=== PATIENT | male | born 1970 | race Caucasian/White ===

== ENCOUNTER 2019-09-29 02:58 | Emergency (ER) | payer MEDICARE, MEDICAID ==
[~2019-09-29] VITALS: Ht 182.9 cm; Wt 109.6 kg
--- NOTE | 2019-09-29 03:22 | ED Neurological Problem ---
General Stated Complaint: WEAKNESS Source: patient, EMS History of Present Illness Date Seen by Provider: Sep 29, 2019 Time Seen by Provider: 02:58 Initial Comments 49 -year-old male presenting with left-sided weakness. He states that around 7 PM he started feeling like his left side was going to sleep. Then he woke up around 2 AM and had tried to get up to go the bathroom. He had to crawl to the bathroom because when he had to stand up he couldn't because his left side was so weak. He denies having headache or any change in his vision. He denies any fever or chills. He has no cough or shortness of breath. He is a diabetic and a smoker. Allergies and Home Medications Allergies Coded Allergies: No Known Drug Allergies (Unverified , 09/29/19) Patient Home Medication List Home Medication List Reviewed: Yes Review of Systems Review of Systems Constitutional: No chills, No fever Eyes: No Symptoms Reported Ears, Nose, Mouth, Throat: no symptoms reported Respiratory: no symptoms reported Cardiovascular: no symptoms reported Gastrointestinal: no symptoms reported Genitourinary: no symptoms reported Musculoskeletal: muscle weakness (left sided) Skin: no symptoms reported Psychiatric/Neurological: Denies Headache; Weakness (on left side) Endocrine: No Symptoms Reported Hematologic/Lymphatic: No Symptoms Reported Past Qsokklv-Bancis-Oyyvxz Hx Past Med/Social Hx: Reviewed Nursing Past Med/Soc Hx Patient Social History Recent Foreign Travel: No Contact w/Someone Who Travel: No Past Medical History Respiratory: No Cardiac: Yes High Cholesterol, Hypertension Neurological: No Genitourinary: No Gastrointestinal: Yes Gastroesophageal Reflux Musculoskeletal: No Diabetes, Non-Insulin dep HEENT: No Cancer: No Psychosocial: No Integumentary: No Physical Exam Vital Signs Vital Signs - First Documented 09/29/19 03:21 Temp 36.9 Pulse 97 Resp 18 B/P (MAP) 152/82 (105) Pulse Ox 95 O2 Delivery Room Air Capillary Refill : Height, Weight, BMI Height: '" Weight: lbs. oz. kg; BMI Method: General Appearance: WD/WN, no apparent distress HEENT: PERRL/EOMI, pharynx normal Neck: non-tender, full range of motion, supple, normal inspection; No carotid bruit Respiratory: chest non-tender, lungs clear, normal breath sounds, no respiratory distress, no accessory muscle use Cardiovascular: normal peripheral pulses, regular rate, rhythm, no murmur Gastrointestinal: normal bowel sounds, non tender, soft, no pulsatile mass Extremities: normal range of motion, non-tender, normal capillary refill Neurologic/Psychiatric: alert, normal mood/affect; No oriented x 3 (not oriented to time); facial droop (left side) Crainal Nerves: PERRL, abnormal speech (slurred speech), facial droop Motor/Sensory: no sensory deficit, weak motor strength LUE Skin: normal color, warm/dry Stroke Onset of Symptoms Date of Onset of Symptoms: Sep 28, 2019 Time of Symptom Onset: 19:00 Onset of Symptoms: Yes NIH Stroke Scale Assessment Select: Initial Level of Consciousness: 0=Alert (0), Level of Consciousness- Questions: 1=Answers one question (1), LOC Commands: 0=Performs both tasks (0), Gaze: Normal (0), Visual Boss: 0=No visual loss (0), Facial Movement (Facial Paresis): 2=Partial paralysis (2), Motor Function-Arms Right: 0=No drift (0), Motor Function-Arms Left: 1=Drift (1), Motor Function-Legs Right: 0=No drift (0), Motor Function-Legs Left: 0=No drift (0), Limb Ataxia: 0=Absent (0), Sensory: 0=Normal:no loss (0), Best Language: 0=No aphasia (0), Dysarthria: 1=Mild to moderate loss (1), Extinction & Inattention: 0=No abnormality (0), Total: 5 Stroke Thrombolytic Exclusion Age 18 or Over: Yes Progress/Results/Core Measures Results/Orders Lab Results Laboratory Tests Test 09/29/19 03:40 09/29/19 03:44 Range/Units White Blood Count 8.1 4.3-11.0 10^3/uL Red Blood Count 5.57 4.35-5.85 10^6/uL Hemoglobin 17.0 13.3-17.7 G/DL Hematocrit 49 40-54 % Mean Corpuscular Volume 88 80-99 FL Mean Corpuscular Hemoglobin 31 25-34 PG Mean Corpuscular Hemoglobin Concent 35 32-36 G/DL Red Cell Distribution Width 12.9 10.0-14.5 % Platelet Count 248 130-400 10^3/uL Mean Platelet Volume 8.5 7.4-10.4 FL Neutrophils (%) (Auto) 59 42-75 % Lymphocytes (%) (Auto) 32 12-44 % Monocytes (%) (Auto) 8 0-12 % Eosinophils (%) (Auto) 1 0-10 % Basophils (%) (Auto) 1 0-10 % Neutrophils # (Auto) 4.7 1.8-7.8 X 10^3 Lymphocytes # (Auto) 2.6 1.0-4.0 X 10^3 Monocytes # (Auto) 0.7 0.0-1.0 X 10^3 Eosinophils # (Auto) 0.1 0.0-0.3 10^3/uL Basophils # (Auto) 0.0 0.0-0.1 10^3/uL Prothrombin Time 13.0 12.2-14.7 SEC INR Comment 1.0 0.8-1.4 Activated Partial Thromboplast Time 25 24-35 SEC Sodium Level 137 135-145 MMOL/L Potassium Level 3.6 3.6-5.0 MMOL/L Chloride Level 98 98-107 MMOL/L Carbon Dioxide Level 23 21-32 MMOL/L Anion Gap 16 H 5-14 MMOL/L Blood Urea Nitrogen 7 7-18 MG/DL Creatinine 0.62 0.60-1.30 MG/DL Estimat Glomerular Filtration Rate > 60 BUN/Creatinine Ratio 11 Glucose Level 325 H 70-105 MG/DL Calcium Level 9.4 8.5-10.1 MG/DL Corrected Calcium 9.2 8.5-10.1 MG/DL Total Bilirubin 0.5 0.1-1.0 MG/DL Aspartate Amino Transf (AST/SGOT) 15 5-34 U/L Alanine Aminotransferase (ALT/SGPT) 22 0-55 U/L Alkaline Phosphatase 86 40-136 U/L Troponin I < 0.30 <0.30 NG/ML Total Protein 7.4 6.4-8.2 GM/DL Albumin 4.2 3.2-4.5 GM/DL Serum Alcohol < 10 <10 MG/DL Glucometer 297 H 70-110 MG/DL My Orders Orders - PETRA GALVAN MD Cbc With Automated Diff (09/29/19 03:13) Protime With Inr (09/29/19 03:13) Partial Thromboplastin Time (09/29/19 03:13) Comprehensive Metabolic Panel (09/29/19 03:13) Troponin I Fs (09/29/19 03:13) Ua Culture If Indicated (09/29/19 03:13) Chest 1 View Ap/Pa Only (09/29/19 03:13) Ekg Tracing (09/29/19 03:13) Nothing By Mouth (09/29/19 Breakfast) Accucheck Stat ONCE (09/29/19 03:13) Ed Iv/Invasive Line Start (09/29/19 03:13) Vital Signs Stroke Patient Q15M (09/29/19 03:13) Ct Head Wo-R/O Stroke (09/29/19 03:13) O2 (09/29/19 03:13) Monitor-Rhythm Ecg Trace Only (09/29/19 03:13) Dysphagia Screening Tool (09/29/19 03:13) Alcohol (09/29/19 03:13) Drug Screen Stat (Urine) (09/29/19 03:13) Vital Signs/I&O 09/29/19 03:21 Temp 36.9 Pulse 97 Resp 18 B/P (MAP) 152/82 (105) Pulse Ox 95 O2 Delivery Room Air Progress Progress Note #1: Progress Note check labs and ECG as well as CT head to evaluate from a stroke stand point. He has a NIHSS level of 5. He woke up with the symptoms being worse and he had onset of abnormal symptoms around 1900 Progress Note #2: Time: 03:55 Progress Note CXR does not show any acute process on my review of the 1 view chest film. His CBC is stable without acute findings. His coags are normal as well. Chemistry is pending as well as the CT of his head. Progress Note #3: Time: 04:11 Progress Note Updated the patient and his daughter that he has had a stroke but the CT scan does not show any bleeding. Recommend transfer to a larger hospital that would be a stroke center in [place] or [place] where Neurology and IR could work with him. Pt requests [facility]. Updated his sister over the cell phone as well. Progress Note #4: Time: 04:14 Progress Note Page placed through transfer line ADRIEN Garcia, at [facility]. She will page Dr. Castaneda with the hospitalist service and call me back. Progress Note #5: Time: 04:[address] Castaneda called back and reviewed the case and test results with her. She accepted the patient for transfer. Initial ECG Impression Date: Sep 29, 2019 Initial ECG Impression Time: 03:03 Initial ECG Rate: 93 Initial ECG Rhythm: Normal Sinus Initial ECG Comparisson: No Previous ECG Available Comment Normal sinus rhythm with a heart rate of 93 bpm. TN interval of 153 ms. QT interval 362 ms QTc interval [address] elevation. No prior tracing immediately available for comparison. Diagnostic Imaging Diagonstic Imaging: CT Plain Films/CT/US/NM/MRI: head Comments No acute findings. Read by Dr. Ibrahima Lucas MD at 0342 AM and faxed at 0400 AM Diagonstic Imaging: Xray Plain Films/CT/US/NM/MRI: chest Comments On my review of his 1 view chest x-ray has no acute process. There is no effusion or definite infiltrate. He has no cardiomegaly or pneumothorax. There is no prior imaging for comparison Departure Impression Primary Impression: Acute ischemic stroke Additional Impressions: Acute left-sided weakness Weakness on left side of face Disposition: 02 XFER SHT-TRM HOSP Condition: Stable Transfer Transfer Reason: Exceeds level of care (Needs Neurology and acute stroke care) Time Spoke to Accepting Phy: 04:24 Transfer Progress Notes D/w Dr. Castaneda, Hospitalist, at [facility] and she accepted pt for transfer Transfer Facility: [facility] Method of Transfer: EMS Departure-Patient Inst. Referrals: NO,LOCAL PHYSICIAN (PCP/Family) Primary Care Physician PETAR GALVAN MD Sep 29, 2019 03:22
[2019-09-29] MEDS ORDERED: OMEP40CA27 (03:47)
[2019-09-29] MEDS ORDERED: ATOR20TA66 (03:47)
[2019-09-29] MEDS ORDERED: METF-399 (03:47)
[2019-09-29] MEDS ORDERED: LISI-556 (03:47)
[2019-09-29 03:52] LABS: HEMATOCRIT 49 % (40-54); MEAN CORPUSCULAR VOLUME 88 FL (80-99); WHITE BLOOD COUNT 8.1 10^3/uL (4.3-11.0)
[2019-09-29 03:53] LABS: BASOPHILS % (AUTO) 1 % (0-10); EOSINOPHILS # (AUTO) 0.1 10^3/uL (0.0-0.3); EOSINOPHILS % (AUTO) 1 % (0-10); LYMPHOCYTES # (AUTO) 2.6 X 10^3 (1.0-4.0); LYMPHOCYTES % (AUTO) 32 % (12-44); MEAN CORPUSCULAR HEMOGLOBIN 31 PG (25-34); MEAN CORPUSCULAR HGB CONC 35 G/DL (32-36); MEAN PLATELET VOLUME 8.5 FL (7.4-10.4); MONOCYTES # (AUTO) 0.7 X 10^3 (0.0-1.0); MONOCYTES % (AUTO) 8 % (0-12); NEUTROPHILS # (AUTO) 4.7 X 10^3 (1.8-7.8); NEUTROPHILS % (AUTO) 59 % (42-75); PLATELET COUNT 248 10^3/uL (130-400); RED CELL DISTRIBUTION WIDTH 12.9 % (10.0-14.5)
[2019-09-29 04:20] LABS: POTASSIUM 3.6 MMOL/L (3.6-5.0); SODIUM 137 MMOL/L (135-145)
[2019-09-29 04:21] LABS: ALANINE AMINOTRANSFERASE 22 U/L (0-55); ALKALINE PHOSPHATASE 86 U/L (40-136); BILIRUBIN,TOTAL 0.5 MG/DL (0.1-1.0); BUN/CREATININE RATIO 11; CALCIUM 9.4 MG/DL (8.5-10.1); CARBON DIOXIDE 23 MMOL/L (21-32); CHLORIDE 98 MMOL/L (98-107); CREATININE SERUM 0.62 MG/DL (0.60-1.30); GFR ESTIMATED > 60; GLUCOSE 325 MG/DL (70-105); TOTAL PROTEIN 7.4 GM/DL (6.4-8.2)
[2019-09-29 04:22] LABS: ALBUMIN 4.2 GM/DL (3.2-4.5)
--- NOTE | 2019-09-29 04:55 | NUR ---
ems here for transport.
[2019-09-29 05:01] VITALS: BP 122/82
--- NOTE | 2019-09-29 06:11 | Diagnostic Imaging Report ---
PROCEDURE: CT head wo r/o stroke. TECHNIQUE: Multiple contiguous axial images were obtained through the brain without the use of intravenous contrast. Auto Exposure Controls were utilized during the CT exam to meet ALARA standards for radiation dose reduction. INDICATION: Stroke. COMPARISON: None. FINDINGS: No intracranial hemorrhage, mass effect, hydrocephalus or extra-axial fluid collections. No CT evidence for territorial infarction. Osseous structures are intact. The visualized paranasal sinuses and mastoids are clear. IMPRESSION: No acute intracranial CT findings. Dictated by: Dictated on workstation # [id number]
--- NOTE | 2019-09-29 06:55 | Diagnostic Imaging Report ---
EXAM: CHEST 1 VIEW AP/PA ONLY INDICATION: Cough. COMPARISON: None. FINDINGS: Normal heart size and pulmonary vascularity. No dense consolidation, pleural effusion or pneumothorax. No acute osseous findings. IMPRESSION: No acute cardiopulmonary findings Dictated by: Dictated on workstation # [id number]
== END 2019-09-29 04:55 | disposition short-term general hospital (02) ==
LOC: ER FS 03:01
DX: I63.9 Cerebral infarction, unspecified (principal); E11.9 Type 2 diabetes mellitus without complications; F17.200 Nicotine dependence, unspecified, uncomplicated
CPT/HCPCS: 36415; 70450; 71045; 80053; 80320; 82962; 84484; 85025; 85610; 85730; 93005; 93041

== ENCOUNTER 2020-10-29 07:57 | Outpatient (CLI) | payer MEDICARE, MEDICAID ==
[~2020-10-29] VITALS: Ht 185.4 cm; Wt 95.3 kg
[~2020-10-29 07:57] MED LIST: ATOR20TA66; LISI-729; METF-399; OMEP40CA27
[2020-10-29] MEDS ORDERED: AMLO-250 PO (12:40)
[2020-10-29] MEDS ORDERED: ATOR40TA70 PO (12:40)
[2020-10-29] MEDS ORDERED: ASPI-38 PO (12:40)
[2020-10-29] MEDS ORDERED: CLOP75TA28 PO (12:40)
[2020-10-29] MEDS ORDERED: NF-VITD400 PO (12:40)
[2020-10-29] MEDS ORDERED: POTA10TA36 PO (12:40)
[2020-10-29] MEDS ORDERED: OMEP40CA27 PO (12:40)
[2020-10-29] MEDS ORDERED: CANA1TAB4 PO (12:40)
== END 2020-10-29 12:09 | disposition home or self-care (01) ==
LOC: PREOP 07:57
PROVIDERS: ATTEND Surgery
DX: Z01.818 Encounter for other preprocedural examination (principal)